=== PATIENT | female | born 1940 | race Caucasian/White ===

== ENCOUNTER → 2018-04-11 | Outpatient (CLI) | payer MEDICARE ==
[~2018-04-11] MED LIST: NATTOKINASE PO; VITAMINS & MINERALS; [UNRECOGNIZED DRUG - OTHER] PO
[2018-04-11 16:22] LABS: Bilirubin, Urine Neg (Neg); Blood, Urine Neg (Neg); Glucose Qualitative, Urine Neg (Neg); Ketones, Urine Neg (Neg); Leukocyte Esterase, Urine 1+ (Neg); Nitrite, Urine Pos (Neg); Protein, Urine Neg (Neg); Specific Gravity, Urine 1.015 (1.003-1.022); Urobilinogen, Urine NORM (Normal)
[2018-04-11 16:28] LABS: Appearance, Urine Hazy (Clear); Color, Urine Yellow (P-Yellow)
[2018-04-11 16:29] LABS: Bacteria Many /hpf; Red Blood Cells, Urine 0-2 /hpf (0-2); Squamous Epithelial Cells Few /hpf (Few); White Blood Cells, Urine 50-100 /hpf (0-5)
== END | disposition home or self-care (01) ==
LOC: LAB SHORT 16:09 → LAB 16:09
PROVIDERS: Physician Assistant Medical
DX: E55.9 Vitamin D deficiency, unspecified (principal); R53.83 Other fatigue; R06.09 Other forms of dyspnea
CPT/HCPCS: 81001; 87077; 87086; 87186

== ENCOUNTER 2022-10-23 12:10 | Day surgery (SDC) | payer OTHER ==
[~2022-10-23] VITALS: Ht 160 cm; Wt 76.6 kg
[2022-10-23] MEDS ORDERED: ERGO400 (13:05)
--- NOTE | 2022-10-23 13:50 | NUR ---
10/23/22 1350 Nelli Medeiros THREE ATTEMPTS AT IV. FIRST ATTEMPT IN R HAND BY MA INFILTRATED. SECOND ATTEMPT AT IV IN L HAND INFILTRATED. THRID ATTEMPT BY RN IN R AC SUCESSFUL.
--- NOTE | 2022-10-23 14:38 | NUR ---
10/23/22 1438 Neva Mosley FLUIDS DISCONTINUED 200 LTC.
== END 2022-10-23 14:45 | disposition home or self-care (01) ==
LOC: ORSCSDS 12:10
PROVIDERS: Surgery
PROC: 0DJD8ZZ Inspection of Lower Intestinal Tract, Via Natural or Artificial Opening Endoscopic (ICD-10-PCS; principal; 2022-10-23 13:30)
DX: Z12.11 Encounter for screening for malignant neoplasm of colon (principal); Z86.010 Personal history of colon polyps; K57.30 Diverticulosis of large intestine without perforation or abscess without bleeding; I10 Essential (primary) hypertension; E78.5 Hyperlipidemia, unspecified; E66.9 Obesity, unspecified; Z68.30 Body mass index [BMI] 30.0-30.9, adult
CPT/HCPCS: J2704; J7120

== ENCOUNTER 2023-03-07 06:56 | Day surgery (SDC) | payer OTHER ==
[~2023-03-07] VITALS: Ht 160 cm; Wt 76.6 kg
[2023-03-07] VITALS (16 sets, daily range): BP systolic 141–160; BP diastolic 63–110
[~2023-03-07 06:56] MED LIST changes: +ERGO400 PO; +TURMERIC500 M2 PO
--- NOTE | 2023-03-07 08:02 | NUR ---
History, Chart, Medications and Allergies reviewed before start of procedure.CONFIRMED SURGERY AND SURGEON.PRE OP TEACHING DONE.WRIST WATCH WITH PATIENT CLOTHES IN BELONGINGS BAG. EYE GLASSES LABELED AND TAKENT TO PACU
--- NOTE | 2023-03-07 09:56 | NUR ---
REPORT FROM YESSY CERNA RN. PT AXOX4, ABLE TO REPOSTION SELF IN BED. PT HAS FOUR INCISION SITES ON ABDOMEN COVERED WITH STERISTRIPS THAT ARE CDI.
--- NOTE | 2023-03-07 11:54 | NUR ---
PT REPORTS CONT TO HAVE SLIGHT NAUSEA AND DIZZINESS. PT WAS ABLE TO WALK TO RESTROOM WITH RN PRESENT. PT HAD STEADY GAIT. PT ASKED IF WE HAD A DIFFERENT MEDICATION FOR NAUSEA. DR NOTIFIED, REPORTS WILL COME SEE PT. PT PLEASANT AND COOPERATIVE. RESTING QUIETLY WHEN NOT DISTURBED.
--- NOTE | 2023-03-07 12:13 | NUR ---
DR HODGE RECENTLY BEEN TO SEE PT. REPORTS WILL PLACE ORDERS FOR ZOFRAN. OTHER HANNA Velasquez. BEEN GIVEN REPORT AND IS ASSUMING CARE OF PT AT THIS TIME.
--- NOTE | 2023-03-07 12:27 | NUR ---
PT GIVEN ZOFRAN FOR NAUSEA. REPORTS SLIGHT BACK ACHE AND SORE ABD, RATE PAIN 3/10.
--- NOTE | 2023-03-07 13:12 | NUR ---
RX FOR ZOFRAN OBTAINED FROM DR. HODGE AT PATIENT REQUEST. REVIEWED DISCHARGE INSTRUCTIONS WIH PATIENT. PT REPORTS NAUSEA RESOLVED AND PAIN MILD. SCANT DRANTED TO MIDLE DRESSING REINFORCED WITH BANDAGE. PT VERBALIZED UNDERSTANDING. DISCHARGE VIA WC. RIDE HOME WITH FRIENDS.
== END 2023-03-07 13:15 | disposition home or self-care (01) ==
LOC: ORSCMMR 06:56 → ORD 08:00 → ORSCMMR 13:15
PROVIDERS: Surgery
PROC: 0FT44ZZ Resection of Gallbladder, Percutaneous Endoscopic Approach (ICD-10-PCS; principal; 2023-03-07 08:00)
DX: K80.10 Calculus of gallbladder with chronic cholecystitis without obstruction (principal); I10 Essential (primary) hypertension; E78.5 Hyperlipidemia, unspecified; Z87.891 Personal history of nicotine dependence
CPT/HCPCS: 74300; 88304; A9270; C1729; J0690; J1100; J1885; J2250; J2405; J2704; J2710; J2765; J2795; J3010; J7120

== ENCOUNTER 2023-04-22 03:57 | Inpatient (IN) | payer OTHER ==
[~2023-04-22] VITALS: Ht 160 cm; Wt 69.3 kg
[2023-04-22] VITALS (10 sets, daily range): BP systolic 51–142; BP diastolic 34–114
[2023-04-22 04:28] LABS: Base Excess Venous -5.3 mmol/L; Bicarbonate Venous 19.4 mmol/L (24.0-30.0); PCO2 Venous 49.9 mmHg (38-42); pH Blood Venous 7.25 (7.34-7.37)
[2023-04-22 04:34] LABS: BASOPHILS ABSOLUTE AUTO 0.15 K/mm3 (0.00-0.23); BASOPHILS PERCENT AUTO 1 % (0-2); EOSINOPHILS ABSOLUTE AUTO 0.02 K/mm3 (0.00-0.68); EOSINOPHILS PERCENT AUTO 0 % (0-6); Hemoglobin 18.5 g/dL (11.5-16.0); IMMATURE GRAN ABSOLUTE AUTO 0.15 K/mm3 (0.00-0.10); IMMATURE GRAN PERCENT AUTO 1 % (0-1); LYMPHOCYTES ABSOLUTE AUTO 2.04 K/mm3 (0.84-5.20); LYMPHOCYTES PERCENT AUTO 10 % (21-46); MONOCYTES ABSOLUTE AUTO 0.83 K/mm3 (0.16-1.47); MONOCYTES PERCENT AUTO 4 % (4-13); Mean Corpuscular HGB 31.5 pg (26.0-34.0); Mean Corpuscular HGB Conc 32.9 g/dL (31.5-36.5); Mean Corpuscular Volume 96 fL (80-100); NEUTROPHILS ABSOLUTE AUTO 18.05 K/mm3 (1.96-9.15); NEUTROPHILS PERCENT AUTO 85 % (41-73); RDW Coefficient Variation 13.3 % (11.7-14.2); RDW Standard Deviation 47.9 fL (35.1-46.3); Red Blood Cell Count 5.87 M/mm3 (3.80-5.20); White Blood Cell Count 21.24 K/mm3 (4.00-11.30)
[2023-04-22 04:37] LABS: Hematocrit 56.3 % (33.0-51.0); Mean Platelet Volume 12.8 fL (9.1-12.4); Platelet Count 332 K/mm3 (150-400)
[2023-04-22 05:02] LABS: Influenza A, PCR NEGATIVE (NEGATIVE); Influenza B, PCR NEGATIVE (NEGATIVE); Resp Syncytial Virus, PCR NEGATIVE (NEGATIVE); SARS-Cov-2 (COVID-19) PCR, MMC NEGATIVE (NEGATIVE)
[2023-04-22 05:27] LABS: Albumin, Blood 3.8 g/dL (3.4-5.0); Albumin/Globulin Ratio 0.9 (0.8-1.8); Bilirubin, Total 0.6 mg/dL (0.1-1.0); Bun/Creatinine Ratio 24.2 (12.0-20.0); Calcium, Blood 11.4 mg/dL (8.5-10.1); Creatinine, Blood 0.95 mg/dL (0.40-1.00); Globulin, Blood 4.4 g/dL (2.2-4.0); Total Protein, Blood 8.2 g/dL (6.4-8.2)
[2023-04-22 07:34] LABS: Anti-Xa UFH, PHA Monitoring <0.10 IU/mL; International Normalized Ratio 1.05
[2023-04-22 08:28] LABS: LDL/HDL RATIO 2.8; Very Low Density Lipoprot Chol 19 mg/dL (6-32)
[2023-04-22 08:29] LABS: CHOL/HDL RATIO 4.1; Cholesterol 255 mg/dL (50-200); HDL Cholesterol 62 mg/dL (>39); Low Density Lipoprotein Chol 174 mg/dL (0-110); Triglycerides 97 mg/dL (30-160)
--- NOTE | 2023-04-22 08:30 | NUR ---
Recieved report from Fritz FERREIRA. Patient just arrived shortly ago and is getting settled. Fritz RN got immediated meds and Abx started. She is alerta nd oriented and is able to communicate her needs. She is stating very hot and wanter air heater off and got her fan. Fritz was able to take off BIPAP briefly for PO meds and she had difficulty swallowing with water stating "they will not go down" and with more sips was able. Heparin started per DEC. She wanted to have BM and placed on bed arellano twice without success. Gave Zofran and she staed her earlier pills made her GERD worse She had increased lethargy and was more difficult to arouse, systolic dropped to 63 and waited for a couple minutes and re-took and dropped to 47. Dr Valentin was just coming in room, she called Dr Cardoso and he came to room. He stated he is scrubbing in a case and will be back later. Stsrted Levophed at 5mcg/min into LAC and increased to 7mcg/min until ICU bed ready. RT was in room trying to get better read on SpO2 and her distral extremities were very cold and diaphoretic. We pushed her to ICU 2 and gave report to Vicki FERREIRA.
--- NOTE | 2023-04-22 10:43 | NUR ---
Spiritual care visit conducted, in response to a Code Blue announcement. Patient is receiving CPR, I talk with patient's friend and medical decision maker, Lacie via telephone. I provide emotional support and a calming voice as well as explore patient's spiritual beliefs. The phone is passed back and forth with Palliative care RN Jyoti, DR. Valentin and myself. After 9-10 minutes of CPR Lacie asks to stop CPR. A pulse is dicovered, Lacie declines further CPR measures. After several minutes patient codes again and time of is called at 1025. Jyoti and I continue to talk with Lacie and I provide an end- of-life prayer. Lacie sounded as if she was comforted by Jyoti and my efforts to provide grief support.
--- NOTE | 2023-04-22 10:55 | NUR ---
Spoke with Lacie, pt's roommate and decision maker when the pt coded this morning. The pt did acheive ROSC, but shortly after intubation, she coded a second time, and Lacie request no further treatment. 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 The pt named Lacie as her decision maker, so she was called during the code. At 1025 this morning, the team called the pt's time of , as her heart had stopped for a 2nd time, and their resucitation efforts were not successful. Lacie requested the mortuary service control operator today take pt into their care. ICU fire extinguisher charger Darien is calling [facility] to confirm they are service control operator. Condolences given to Lacie, and Glove Maker Tim was able to pray with her via t/c as she declined to come in at that point.
--- NOTE | 2023-04-22 11:00 | NUR ---
ICU TRANSFER / [facility] BL[facility]: REPORT FROM ALEX Garcia RN IN PCU. PT ARRIVED TO ICU-02 AT APPROX 0845. ON ARRIVAL, THE PT IS SOMEWHAT SOMNOLENT, AWAKENING ONLY BRIEFLY WHEN TRANFERRED TO ICU BED. SHE IS CURRENTLY ON BIPAP W/ SETTINGS: 14/7 & 50% FIO2. DIFFICULT TO OBTAIN CONSISTENT/ ACCURATE SPO2 READING R/T COOL EXTREMITIES & POOR PERFUSION. LS COARSE, DIM IN BASES. MONITOR SHOWS ST W/ HR 110-130s, INCREASED W/ ANXIETY & EXERTION THE PT's MENTATION HAS BEGUN TO IMPROVE. SHE IS NOW MORE AWAKE, EXPRESSING FEELING ANXIOUS & STATING THAT SHE NEEDS TO USE THE BEDPAN & IS FEELING LIKE SHE "CAN'T BREATHE." ALEM Frost, EXCAVATING MACHINE OPERATOR, HAS BEEN AT BEDSIDE & ATTEMPTED TO PLACE PICC LINE, BUT IT IS NOTE THAT PERIPHERAL VASCULATURE IS NOT SUITABLE FOR LINE TO BE PLACED. THIS RN HAS NOTIFIED DR HOUGH, SHE STS TO CONSULT DR ALVA FOR CENTRAL LINE PLACEMENT. THIS RN HAS NOTIFIED DR ALVA WHO HAS COME TO BEDSIDE TO EVAL PT. SHE IS REVIEWING LABWORK WHEN THE PT HAS STARTED TO BECOME MORE DYSPNEIC & ANXIOUS. SHE REMAINS COOL TO THE TOUCH BUT IS ALSO BECOMING INCREASINGLY DIAPHORETIC. THIS RN UNABLE TO GET ACCURATE BP READING, RESULTS LABILE R/T PT's CONTINUED MOVEMENT & TRIPOD POSITIONING - SEE VS. DR ALVA HAS PLACED ORDERS FOR REPEAT LABS & A STAT ABG. MCKINLEY Almendarez RT, NOTIFIED & HAS COME TO BEDSIDE TO OBTAIN ABG. DURING THIS TIME, THIS RN & DR ALVA ARE ALSO AT BEDSIDE THE PT IS INCREASINGLY ANXIOUS & HAVING A DIFFICULT TIME HOLDING STILL. AT APPROX 0959 THE PT IS NO LONGER CONVERSING W/ STAFF & UNABLE TO FOLLOW DIRECTIONS. APNEA NOTED SHORTLY AFTER. HOB LOWERED, [facility] BLUE CALLED & CRASH CART TO BEDSIDE. THE PT IS THEN NOTED TO BE PULSELESS, W/ SINUS AMBREEN NOTED ON MONITOR. CPR INITIATED AT THAT TIME & MEDS GIVEN PER ACLS PROTOCOL W/ ED TEAM AT BEDSIDE & DR ALVA ATTENDING PROVIDER. ROSC OBTAINED AT 1011 & PT INTUBATED BY DR ALVA, PLACED ON VENTILATOR. ANNIE MORGAN RN HAS BEEN SPEAKING W/ THE PT's NOK WHO STATES THAT IF THE PT WERE TO CODE AGAIN, NO FURTHER CPR SHOULD BE INITIATED. AT 1025, THE PT AGAIN BECOMES PULSELESS DESPITE CONTINUED INTERVENTIONS & DR ALVA HAS CALLED TOD AT THAT TIME - SEE CODE BLUE SHEET IN CHART FOR FURTHER DETAILS. HAMIDA, PALLIATIVE RN, REMAINS ON PHONE W/ PT's NOK AT THAT TIME & HAS NOTIFIED HER OF PT's - SEE FINAL DISCHARGE INTERVENTION FOR MORE INFORMATION.
[2023-04-23 06:16] LABS: HEMOGLOBIN A1C 5.5 % (4.8-5.6)
== END 2023-04-22 10:25 | DRG 871 ==
LOC: ER 03:57 → PCU 05:52 → ICUE 05:52 → PCU 06:30 → ICUE 06:45
PROVIDERS: Emergency Medicine; Internal Medicine; Student in an Organized Health Care Education/Training Program; ADMIT Internal Medicine
PROC: 5A09357 Assistance with Respiratory Ventilation, Less than 24 Consecutive Hours, Continuous Positive Airway Pressure (ICD-10-PCS; principal; 2023-04-22)
PROC: 3E033XZ Introduction of Vasopressor into Peripheral Vein, Percutaneous Approach (ICD-10-PCS; 2023-04-22)
PROC: 0BH17EZ Insertion of Endotracheal Airway into Trachea, Via Natural or Artificial Opening (ICD-10-PCS; 2023-04-22)
DX: A41.9 Sepsis, unspecified organism (principal); J18.9 Pneumonia, unspecified organism; J96.01 Acute respiratory failure with hypoxia; J96.02 Acute respiratory failure with hypercapnia; R57.0 Cardiogenic shock; R00.1 Bradycardia, unspecified; E66.9 Obesity, unspecified; I25.10 Atherosclerotic heart disease of native coronary artery without angina pectoris; Z20.822 Contact with and (suspected) exposure to COVID-19; D75.1 Secondary polycythemia; Z79.899 Other long term (current) drug therapy; Z88.5 Allergy status to narcotic agent; Z88.8 Allergy status to other drugs, medicaments and biological substances; Z87.891 Personal history of nicotine dependence; Z90.49 Acquired absence of other specified parts of digestive tract; Z68.32 Body mass index [BMI] 32.0-32.9, adult
CPT/HCPCS: 0241U; 36415; 71045; 80053; 80061; 82803; 83036; 83605; 83880; 84145; 84484; 85025; 85520; 85610; 85730; 93005; 93010; 94660; 96374; 96375; 99285-25; A9270; J0456; J0696; J1265; J1644; J1940; J2405; J2765; J7050